=== PATIENT | male | born 1970 | race Caucasian/White ===

== ENCOUNTER 2024-12-18 00:45 | Emergency (ER) | payer OTHER, SELFPAY ==
--- NOTE | 2024-12-18 | ECG_ITS ---
Test Reason : martint Blood Pressure : */* mmHG Vent. Rate : 68 BPM Atrial Rate : 68 BPM P-R Int : 192 ms QRS Dur : 134 ms QT Int : 406 ms P-R-T Axes : 48 -9 151 degrees QTcB Int : 431 ms Normal sinus rhythm Non-specific intra-ventricular conduction block Minimal voltage criteria for LVH, may be normal variant ( [place] product ) Possible Anterolateral infarct , age undetermined Abnormal ECG When compared with ECG of 07-Oct-2015 03:45, QRS duration has increased Borderline criteria for Anterior infarct are now Present Borderline criteria for Anterolateral infarct are now Present T wave inversion now evident in Lateral leads Referred By: Generic ED Physician Electronically Signed By: SIRIA SCHROEDER
--- NOTE | ~2024-12-18 | XR_ITS ---
CLINICAL HISTORY: chest px 2 view chest x-ray. Comparison: None Findings: The lungs appear clear. There is no consolidation, effusion, or pneumothorax. Cardiomediastinal silhouette is within normal limits. IMPRESSION: No acute cardiopulmonary abnormality. This document has been electronically signed by: Demetrio Bernstein MD on 12/18/2024 03:07:32
[2024-12-18 01:05] VITALS: BP 130/72; PULSE 69; RESP 16; TEMP 36.6; O2SAT 96; BMI 37.7
[2024-12-18 01:07] LABS: MANUAL DIFF FLAG NO
[2024-12-18 01:08] LABS: Basophils Absolute Auto 0.1 X10*3/uL (0.0-0.2); Basophils Percent Auto 0.7 % (0-2); Eosinophils Absolute Auto 0.3 X10*3/uL (0.0-0.4); Hematocrit 43.3 % (42.0-52.0); Hemoglobin 15.5 g/dl (14.0-18.0); Imm Gran Abs Auto 0.03 X10*3/uL (0.00-0.03); Imm Gran Pct Auto 0.4 % (0.0-0.4); Lymphocytes Percent Auto 28.1 % (20-40); Mean Corpuscular HGB Conc 35.8 g/dl (31.0-36.0); Mean Corpuscular Hemoglobin 31.8 pg (27.0-33.0); Mean Corpuscular Volume 88.7 fL (80.0-98.0); Mean Platelet Volume 9.7 fL (9.4-12.4); Monocytes Absolute Auto 0.5 X10*3/uL (0.1-1.2); Monocytes Percent Auto 7.2 % (2-11); Neutrophils Absolute Auto 4.3 x10*3/uL (2.0-8.3); Neutrophils Percent Auto 59.6 % (45-73); Platelet Count 185 X10*3/uL (160-400); Red Blood Count 4.88 X10*6/uL (4.60-5.80); Red Cell Distribution Width 13.3 % (11.0-16.0); White Blood Count 7.2 X10*3/uL (4.8-10.8)
[2024-12-18 01:23] LABS: Alanine Aminotransferase 40 U/L (0-40); Albumin Level 4.6 g/dL (3.5-5.0); Alkaline Phosphatase 49 U/L (39-117); Anion Gap 11 (12-20); Aspartate Amino Transferase 39 U/L (5-37); Bilirubin Total 0.5 mg/dL (0.0-1.0); Blood Urea Nitrogen 19 mg/dL (9-16); Calcium 9.5 mg/dL (8.4-10.2); Carbon Dioxide 26 mmol/L (22-29); Chloride 105 mmol/L (96-108); Creatinine Clr Calc Pharmacy 89.2; Estimated Glomerular Filt Rate > 60; Glucose Random 101 mg/dL (60-115); Lipase 31 U/L (8-78); Potassium 4.1 mmol/L (3.3-5.1); Sodium 138 mmol/L (135-145); Total Protein 7.2 g/dL (6.5-8.0)
[2024-12-18 01:31] LABS: Troponin-I High Sensitivity < 2.7 ng/L (<3.5-35.0)
--- NOTE | 2024-12-18 02:23 | ED_ITS ---
HPI - Chest Pain General Chief Complaint: Chest Pain Stated Complaint: Chest, left shoulder pain Time Seen by Provider: 12/18/24 02:22 Source: patient Mode of arrival: ambulatory Limitations: no limitations History of Present Illness ED Provider: Liset Jaquez PA-C HPI narrative: Patient is a 54 year old assigned male at with a history of arrhythmia for which he is on atenolol, HTN, and diabetes presenting to the emergency department today with left shoulder and chest pain. Patient states that he woke up with a dull ache in his left shoulder that came through to his chest. Patient states that it has now resolved but he was concerned enough to be evaluated. Patient denies any dizziness, lightheadedness, abdominal pain, nausea, vomiting, fever, chills, blurry vision, double vision, loss of vision, current chest pain, difficulty breathing, shortness of breath, back pain, night sweats, pain with urination, increased urinary frequency, increased urinary urgency, blood in his urine or stool, syncope or a near syncopal episode, recent trauma or falls, bowel incontinence, bladder incontinence, or any other complaints at this time. Related Data Allergies Allergy/AdvReac Type Severity Reaction Status Date / Time lisinopril (LISINOPRIL) Allergy Unknown COUGH Verified 12/18/24 01:06 Review of Systems 2 Constitutional: Constitutional: Reports no additional constitutional complaints, Denies chills, Denies fever(s) and Denies night sweats Eyes: Eyes: Reports no additional eye complaints, Denies blurry vision, Denies change in vision, Denies diplopia, Denies eye discharge, Denies loss of vision and Denies eye pain ENT: Denies dizziness Cardiovascular: Cardiovascular: Reports no additional cardiovascular complaints, Reports chest pain (now resolved), Denies lightheadedness, Denies Loss of Consciousness and Denies dyspnea Respiratory: Respiratory: Reports no additional respiratory complaints and Denies dyspnea Gastrointestinal: Gastrointestinal: Reports no additional gastrointestinal complaints, Denies abdominal pain, Denies melena, Denies hematochezia, Denies change in bowel habits and Denies change in stool character Genitourinary: Genitourinary: Reports no additional male genitourinary complaints, Denies hematuria, Denies oliguria, Denies difficulty urinating, Denies dysuria, Denies urinary frequency, Denies urinary hesitancy, Denies urinary incontinence and Denies urinary urgency Musculoskeletal: Musculoskeletal: Reports no additional musculoskeletal complaints, Denies numbness and Denies tingling Comments: left sided shoulder pain - now resolved Neurologic: Denies dizziness, Denies loss of vision, Denies numbness and Denies tingling Psychiatric: Psychiatric: Reports no additional psychiatric complaints Endocrine: Endocrine: Reports no additional endocrine complaints Hematologic/Lymphatic: Hematologic/Lymphatic: Reports no additional hematologic/lymphatic complaints Allergic/Immunologic: Allergic/Immunologic: Reports no additional allergic/immunologic complaints [facility] Past Medical History Attestation statement: The following information was validated with the patient. Source: old records reviewed and nursing notes reviewed Social History Social History Smoked in Last 30 Days: No Use of substances other than those prescribed or required for medical reasons: No Advance Directives: No Advance Directives Information Provided: No Do you have a plan to hurt others: No Plan Physical Exam 2 Vital Signs: Vital Signs: Last Vital Signs Temp 97.6 F 12/18/24 02:32 Pulse 54 12/18/24 02:32 Resp 16 12/18/24 02:32 BP 132/90 H 12/18/24 02:32 Pulse Ox 96 12/18/24 02:32 O2 Del Method Room Air 12/18/24 02:32 BMI result Body Mass Index 37.7 Const: General: cooperative, no acute distress, alert and awake Nutritional Appearance: well nourished Orientation/consciousness: patient oriented x3 HEENT: Head: Yes normal to inspection and Yes atraumatic Ears: hearing grossly normal bilaterally and external ears normal General nose exam: Normal external nose present, no nasal discharge noted and no epistaxis Face and sinus: Yes normal facial exam, No abrasion and No laceration Mouth: Normal oral and palatal mucosa present, no drooling and no muffled voice Eyes: General: appearance normal, both eyes and all related structures P eriorbital: periorbital findings normal Eyelids: Yes eyelids normal C onjunctivae: conjunctivae normal Pupils: Equal, round and reactive pupils present EOM: EOMs intact bilaterally Neck: Neck: Yes normal visual inspection, Yes full ROM and Yes no lymphadenopathy Resp: Effort & Inspection: normal respiratory effort and able to speak in complete sentences Neuro: General: patient oriented x3, moves all extremities and CN's II-XI intact bilaterally Cranial nerves: Yes Equal, round and reactive pupils present Cognition (Neuro): normal cognition Extrem: General: Yes normal to inspection, Yes full ROM and Yes capillary refill normal Psych: Appearance: grossly normal Mental Status: mental status grossly normal Affect: normal affect Attitude: cooperative Thought process: N ormal thought process present Thought content: Normal thought content present Insight: Good insight present (Psych) Medical Decision Making Medical Decision Making [facility] Narrative: Patient is a 54 year old assigned male at with a history of arrhythmia for which he is on atenolol, HTN, and diabetes presenting to the emergency department today with left shoulder and chest pain. Patient's physical exam was unremarkable. Patient's blood work was unremarkable including stable trops. Patient's EKG was unremarkable. Patient's chest x-ray showed no acute process. I explained my physical exam findings as well as all test results to the patient. I answered all questions asked by the patient. I stressed the importance of the patient taking his medication as directed (either prescribed or as the over the counter packaging recommends). I stressed the importance of the patient following up with his primary care provider. I stressed the importance of the patient returning to the emergency department immediately if his symptoms were to worsen or if he were to develop any dizziness, shortness of breath, difficulty breathing, chest pain, blurry vision, loss of vision, nausea, vomiting, abdominal pain, fever, chills, back pain, or any other complaints. Patient verbalized agreement and understanding with this treatment plan and discharge. Differential Diagnosis Differential Diagnoses: The differential diagnosis associated with the presentation includes Atypical chest pain Shoulder pain Muscle spasm NSTEMI STEMI Admission/Observation Consideration of admission/observation: Escalation of care including admission/observation considered Patient would have been admitted to the hospital had his work up had any findings where hospital admission was appropriate and his clinical presentation warranted hospital admission. Lab Data [facility] Lab Attestation statement: I reviewed the patient's lab results. My interpretation of these results are in the [facility] Rationale portion of this note. 12/18/24 01:02 12/18/24 01:02 Labs: Lab Results 12/18/24 12/18/24 Range/Units 01:02 02:35 WBC 7.2 (4.8-10.8) X10*3/uL RBC 4.88 (4.60-5.80) X10*6/uL Hgb 15.5 (14.0-18.0) g/dl Hct 43.3 (42.0-52.0) % MCV 88.7 (80.0-98.0) fL MCH 31.8 (27.0-33.0) pg MCHC 35.8 (31.0-36.0) g/dl RDW 13.3 (11.0-16.0) % Plt Count 185 (160-400) X10*3/uL MPV 9.7 (9.4-12.4) fL Immature Gran % (Auto) 0.4 (0.0-0.4) % Neut % (Auto) 59.6 (45-73) % Lymph % (Auto) 28.1 (20-40) % [place] % (Auto) 7.2 (2-11) % Eos % (Auto) 4.0 (0-4) % Baso % (Auto) 0.7 (0-2) % Lymph # (Auto) 2.0 (1.2-4.9) X10*3/uL [place] # (Auto) 0.5 (0.1-1.2) X10*3/uL Eos # (Auto) 0.3 (0.0-0.4) X10*3/uL Baso # (Auto) 0.1 (0.0-0.2) X10*3/uL Abs Immat Gran (auto) 0.03 (0.00-0.03) X10*3/uL Absolute Neuts (auto) 4.3 (2.0-8.3) x10*3/uL Absolute Nucleated RBC 0.000 (0.0-0.012) X10*3/uL Nucleated RBC % (auto) 0.0 (0.0-0.2) /100WBC Sodium 138 (135-145) mmol/L Potassium 4.1 (3.3-5.1) mmol/L Chloride 105 (96-108) mmol/L Carbon Dioxide 26 (22-29) mmol/L Anion Gap 11 L (12-20) BUN 19 H (9-16) mg/dL Creatinine 1.02 (0.5-1.4) mg/dL Estim Creat Clear Calc 89.2 Estimated GFR > 60 Random Glucose 101 (60-115) mg/dL Calcium 9.5 (8.4-10.2) mg/dL Magnesium 2.0 (1.6-2.6) mg/dL Total Bilirubin 0.5 (0.0-1.0) mg/dL AST 39 H (5-37) U/L ALT 40 (0-40) U/L Alkaline Phosphatase 49 (39-117) U/L Troponin I High Sens < 2.7 < 2.7 (<3.5-35.0) ng/L Total Protein 7.2 (6.5-8.0) g/dL Albumin 4.6 (3.5-5.0) g/dL Lipase 31 (8-78) U/L Independent Interpretation I performed an independent interpretation of an: EKG and Plain X-Ray Interpretation: My interpretation is in agreement with the radiologist's impression of this imaging study. L CLINICAL HISTORY: chest px 2 view chest x-ray. Comparison: None Findings: The lungs appear clear. There is no consolidation, effusion, or pneumothorax. Cardiomediastinal silhouette is within normal limits. IMPRESSION: No acute cardiopulmonary abnormality. This document has been electronically signed by: Demetrio Bernstein MD on 12/18/2024 03:07:32 Dictated By: Demetrio Bernstein MD Signed By: Electronically signed by Demetrio Bernstein MD 12/18/24 0308 I independently interpreted this EKG and am in agreement with the below findings: Vent. Rate : 68 BPM Atrial Rate : 68 BPM P-R Int : 192 ms QRS Dur : 134 ms QT Int : 406 ms P-R-T Axes : 48 -9 151 degrees QTcB Int : 431 ms Normal sinus rhythm Non-specific intra-ventricular conduction block Minimal voltage criteria for LVH, may be normal variant ( [place] product ) Possible Anterolateral infarct , age undetermined When compared with ECG of 07-Oct-2015 03:45, QRS duration has increased Borderline criteria for Anterior infarct are now Present Borderline criteria for Anterolateral infarct are now Present T wave inversion now evident in Lateral leads [id number]/ [id number] Radiology Impression Discussion of test interpretation with radiology: I have reviewed the radiologist's reading. Discharge Plan Discharge Clinical Impression: Atypical chest pain, Acute shoulder pain Patient Disposition: Home, Self-Care Instructions: Chest Pain (DC), Shoulder Pain (ED) Additional Instructions: Your work up today was reassuring there is no acute / emergent process for your episode. Follow up with your primary care provider. Return to the emergency department immediately if your symptoms worsen or if you develop any numbness, tingling, dizziness, shortness of breath, difficulty breathing, chest pain, blurry vision, loss of vision, nausea, vomiting, abdominal pain, fever, chills, back pain, or any other complaints. Please see the information below about our Patient Portal. If you are not yet enrolled in the [facility] Patient Portal, you will receive an enrollment email invitation following your visit to any [facility] setting. You may also self-enroll in the Patient Portal by visiting our website: [email or web address] The following information is required to access the Patient Portal: - Your [facility] Medical Record Number - Your personal home email address (must match what is in your electronic medical record, Registration staff can assist with this) - Name - Date of Capabilities of the Patient Portal: - Message some providers - View upcoming appointments - Access your health summary, medical history, and visit history - View current conditions and allergies - View procedure and lab results - View your medications, including guidelines, side effects, and precautions - Complete pre-appointment questionnaires requested by your provider - Ready summary reports of your office visits and procedures To access the Patient Portal Mobile Aleja, follow these directions: - Search [employer] in the Aleja Store or [employer] Store - Download the Aleja - Search for [facility] - Enter your login/password Referrals: Mike Payne MD [Primary Care Provider, Internal Medicine] Print Language: Kiswahili
[2024-12-18 02:32] VITALS: BP 132/90; PULSE 54; RESP 16; TEMP 36.4; O2SAT 96
[2024-12-18 03:06] LABS: Troponin-I High Sensitivity < 2.7 ng/L (<3.5-35.0)
[2024-12-18 03:18] VITALS: BP 122/84; PULSE 61; RESP 16; TEMP 36.8; O2SAT 97
== END 2024-12-18 03:20 | disposition home or self-care (01) ==
PROVIDERS: Physician Assistant Medical; Emergency Provider Internal Medicine; PCP Family Medicine
DX: R07.89 Other chest pain (principal); M25.512 Pain in left shoulder; I10 Essential (primary) hypertension; Z79.899 Other long term (current) drug therapy
CPT/HCPCS: 36415; 71046; 80053; 83690; 83735; 84484; 85025; 93005; 99283; 99285

== ENCOUNTER → 2024-12-18 00:47 | Outpatient (BNV) | payer OTHER, SELFPAY | PROVIDERS: Emergency Provider Internal Medicine; PCP Family Medicine; Visit Provider Internal Medicine | DX: I45.4 Nonspecific intraventricular block (principal) | CPT/HCPCS: 93010 ==

== ENCOUNTER → 2024-12-18 01:18 | Outpatient (BNV) | payer OTHER, SELFPAY | PROVIDERS: Emergency Provider Internal Medicine; PCP Family Medicine; Visit Provider Radiology Diagnostic Radiology | DX: R07.9 Chest pain, unspecified (principal) | CPT/HCPCS: 71046 ==